=== PATIENT | male | born 1990 | race Hispanic/Latino ===

== ENCOUNTER 2024-06-05 17:24 | Emergency (ER) | payer SELFPAY ==
[~2024-06-05] VITALS: Ht 157.5 cm; Wt 56.0 kg
[2024-06-05 17:30] VITALS: PULSE 95; RESP 16; TEMP 98.7; O2SAT 100
[2024-06-05] MEDS ORDERED: PREDNISONE50 MG PO (17:47)
== END 2024-06-05 18:01 | disposition home or self-care (01) ==
LOC: FSED 17:28
DX: M25.522 Pain in left elbow (principal); G56.02 Carpal tunnel syndrome, left upper limb
CPT/HCPCS: 99283